=== PATIENT | female | born 1960 | race Caucasian/White ===

== ENCOUNTER → 2016-09-29 09:25 | Outpatient (CLI) | payer MEDICAID | END | disposition home or self-care (01) | LOC: D.MRI 09-18 10:16 | DX: R42 Dizziness and giddiness (principal); R40.4 Transient alteration of awareness; F18.10 Inhalant abuse, uncomplicated ==

== ENCOUNTER → 2016-12-11 10:33 | Outpatient (CLI) | payer MEDICAID ==
--- NOTE | ~2016-12-11 | EEG ---
PATIENT:ASHVIN HILL DATE OF SERVICE: 12/11/16 MEDICAL RECORD: [id number] DATE OF : 62 LOCATION: [facility] ADMISSION DATE: 12/11/16 REFERRING PHYSICIAN: INTERPRETING PHYSICIAN: ANTOINETTE SWEET MD DATE OF SERVICE: 12/12/2016 Referred by myself as an outpatient. ELECTROENCEPHALOGRAM NUMBER: [id number] DATE OF EXAMINATION: 12/11/2016 at 11:30 a.m. TECHNICAL DATA: This electroencephalographic recording consisted of approximately 20 minutes of data collection utilizing the international 10/20 system of electrode placement and both referential and non-referential montages. Sixteen channels of electrocerebral recording are accompanied by a 17th channel dedicated to the electrocardiographic rhythm and 2 channels of electromyographic recording. Recording is performed entirely in the waking state utilizing activation by photic stimulation. ELECTROENCEPHALOGRAPHIC DATA: The awake state comprises the entirety of the recorded electrocerebral activity. Electromyographic artifact is prominent and rapid eye movements are seen. The posterior dominant background consists of a symmetric, rhythmic, waxing and waning 8-9 Hz alpha activity, which is suppressed by eye opening. No abnormal or focal slowing is identified. No epileptiform discharges are seen. Photic stimulation induces no abnormal change in the recorded electrocerebral activity. Hyperventilation is attempted, but the patient is not able to continue. INTERPRETATION: Normal (awake). This is a normal waking electroencephalographic recording. TRANSINT:[id number] Voice Confirmation ID: [id number] DOCUMENT ID: [id number] ANTOINETTE SWEET MD CC: [id number] DICTATION DATE: 12/12/16715 WELDER TACK: 12/12/16 0727 DEP CLI 12/11/16 [place] [id number] [place] [id number]
== END | disposition home or self-care (01) ==
LOC: D.CN 11-14 10:00
DX: R42 Dizziness and giddiness (principal); R40.4 Transient alteration of awareness; F18.10 Inhalant abuse, uncomplicated

== ENCOUNTER → 2017-03-16 07:02 | Outpatient (CLI) | payer MEDICAID | END | disposition home or self-care (01) | LOC: D.CT 07:02 | DX: R19.7 Diarrhea, unspecified (principal); R11.2 Nausea with vomiting, unspecified; R10.9 Unspecified abdominal pain ==